=== PATIENT | female | born 2000 | race Caucasian/White ===

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

== ENCOUNTER 2020-03-11 01:55 | Emergency (ER) | payer OTHER ==
--- NOTE | 2020-03-11 03:04 | RADIOLOGY REPORT (SQ) ---
Left ankle x-ray three views on 03/11/2020 at 2:35 AM CLINICAL INDICATION: Twisting injury, lateral ankle pain COMPARISON: None FINDINGS: Mild soft tissue swelling is noted around the ankle. The ankle mortise is intact. There is a subtle acute minimally displaced vertical fracture through the posterior malleolus seen on the lateral view. No other definite fracture is noted. Visualized joints are well aligned. IMPRESSION: Subtle acute minimally displaced vertical fracture through the posterior malleolus.
--- NOTE | 2020-03-11 05:33 | ER Document Report ---
ED Extremity Problem, Lower - General Chief Complaint: Ankle Injury Stated Complaint: POSSIBLE INJURY TO LEFT FOOT Time Seen by Provider: 03/11/20 05:32 Primary Care Provider: [facility] [Provider [facility]] - Follow up as needed [facility] [Provider Group] - Follow up as needed Mode of Arrival: Wheelchair Information source: Patient Notes: 20-year-old female presents to ED for complaint of pain to the left ankle posterior and lateral aspect. She does have swelling to the lateral aspect as well as the posterior ankle. Patient states that lately if she sits on her feet when she gets up her feet are numb and she does not feel them and tonight around 9 PM she was sitting on her right foot it was numb so when she stood up it c aused her to roll causing her left ankle to roll injuring her ankle. She states that she fell about 9:00 but she did not come to the emergency room till 3 AM because she thought it was just sprained and she was can be okay but when the ankle continues to swell she decided to come to the emergency room to be examined. Constitutional: Negative for fever. HENT: Negative for sore throat. Eyes: Negative for visual changes. Cardiovascular: Negative for chest pain. Respiratory: Negative for shortness of breath. Gastrointestinal: Negative for abdominal pain, vomiting or diarrhea. Genitourinary: Negative for dysuria. Musculoskeletal: Left ankle pain and swelling Skin: Negative for rash. Neurological: Negative for headaches, weakness or numbness. 10 point ROS negative except as marked above and in HPI. PHYSICAL EXAMINATION: GENERAL: Well-appearing, no acute distress. HEAD: Atraumatic, normocephalic. EYES: Pupils equal round and reactive to light, extraocular movements intact, sclera anicteric, conjunctiva are normal. ENT: nares patent, no oral pharyngeal trauma. No hemotympanum, no Anaya's sign, no raccoon eyes. NECK: No midline cervical spine tenderness. Patient able to move their head to 45 bilaterally without any discomfort. LUNGS: Breath sounds clear to auscultation bilaterally and equal. No wheezes rales or rhonchi. HEART: Regular rate and rhythm without murmurs. CHEST WALL: No ecchymosis over the chest wall. ABDOMEN: Soft, nontender, normoactive bowel sounds. No guarding, no rebound. No seatbelt sign. EXTREMITIES: Normal range of motion, no pitting or edema. No long bone deformities. BACK: No midline spinal tenderness, step-offs, or deformities. NEUROLOGICAL: Face symmetric. Tongue protrudes midline. Extraocular motions intact. Pupils are 2 mm and equally reactive. Normal speech, normal gait. 5 out of 5 strength in both the distal and proximal upper and lower extremities bilaterally. Sensation is grossly intact throughout. Finger to nose testing normal. Pronator drift normal. PSYCH: Normal mood, normal affect. SKIN: Warm, Dry, normal turgor, no rashes or lesions noted. - HPI Patient complains to provider of: Injury, Pain, Swelling Location: Ankle Occurred: Yesterday Where: Home Onset/Duration: Gradual Quality of pain: Achy, Pressure Severity: Mild Pain Level: 1 Context: Twisted Recent injury: Yes Associated symptoms: Painful ambulation Exacerbated by: Hanging down, Movement, Walking Relieved by: Elevation, Ice, Rest - Related Data Allergies/Adverse Reactions: No Known Allergies Allergy (Verified 03/11/20 02:21) Past Medical History - General Information source: Patient - Social History Smoking Status: Never Smoker Frequency of alcohol use: Rare Drug Abuse: None Lives with: Family Family History: Reviewed & Not Pertinent Patient has suicidal ideation: No Patient has homicidal ideation: No - Past Medical History Cardiac Medical History: Reports: None Pulmonary Medical History: Reports: None EENT Medical History: Reports: None Neurological Medical History: Reports: None Endocrine Medical History: Reports: None Renal/ Medical History: Reports: Hx Kidney Stones Malignancy Medical History: Reports: None GI Medical History: Reports: None Musculoskeletal Medical History: Reports Hx Musculoskeletal Trauma Skin Medical History: Reports None Psychiatric Medical History: Reports: None Traumatic Medical History: Reports: Hx Fractures - Left posterior tibial malleolus Infectious Medical History: Reports: None Surgical Hx: Negative Past Surgical History: Reports: None - Immunizations Immunizations up to date: Yes Hx Diphtheria, Pertussis, Tetanus Vaccination: Yes Physical Exam - Vital signs Vitals: Temp Pulse Resp BP Pulse Ox 98.9 F 112 H 16 121/78 100 03/11/20 02:02 03/11/20 02:02 03/11/20 02:02 03/11/20 02:02 03/11/20 02:02 Course - Re-evaluation Re-evalutation: 03/11/20 06:20 Patient was treated with a posterior short leg splint at 90 degrees angle. She was also given instructions on nonweightbearing crutch walking for this fracture. Patient has oxycodone at home from previous kidney stone that she never took. She states she would prefer just using Tylenol or Motrin unless she has to take the narcotic. I did give her instructions on elevation ice ibuprofen and Tylenol. Patient was discharged home after giving her the name and phone number for her primary care through [facility] and [facility] for surgery. She was told to please call her primary care and/or [facility] to get a referral promptly as this is a fractured bone. She verbalized understanding and agreement with treatment plan and she was discharged home. - Vital Signs Vital signs: Temp Pulse Resp BP Pulse Ox 98.9 F 112 H 16 121/78 100 03/11/20 02:02 03/11/20 02:02 03/11/20 02:02 03/11/20 02:02 03/11/20 02:02 - Laboratory Results Critical Laboratory Results Reviewed: No Critical Results - Radiology Results Critical Radiology Results Reviewed: No Critical Results Procedures - Immobilization Left Ankle Time completed: 06:19 Pre-Proc Neuro Vasc Exam: Normal Immobilizer type: Crutches - Nonweightbearing, Short Leg Posterior Performed by: PCT Post-Proc Neuro Vasc Exam: Normal Alignment checked and good: Yes Discharge - Discharge Clinical Impression: Fracture of posterior malleolus of left tibia Qualifiers: Encounter type: initial encounter Fracture type: closed Qualified Code(s): S82.392A - Other fracture of lower end of left tibia, initial encounter for closed fracture Condition: Stable Disposition: HOME, SELF-CARE Additional Instructions: Fractured Ankle posterior malleolus of the left tibia You have a fracture of posterior aspect of the tibia or large bone in the lower leg at the ankle. This is mildly displaced but does not need to be set at this time. A splint will be applied and then you will follow-up with orthopedics for further care. This fracture wll require a cast for healing and some of the more serious fractures of this type will require surgery. If surger y is not required, the bones requires only protection and sufficient time for healing. The initial treatment is immobilization, elevation, and ice packs. Depending on the type of fracture, immobilization may consist of a splint or cast. The length of time required for healing depends on the type of fracture. You will be referred to an orthopedic surgeon who will re-assess you periodically to make certain that the bone heals without complications. It's important that you follow the instructions given you. Splint Pending Casting Your injury can't be casted until the swelling has subsided. Therefore, a temporary splint has been placed to protect the injury. Full use of an injured area is not possible in a splint. You should follow the doctor's instructions concerning rest, ice, and elevation of the injury. Never do anything which causes pain under the splint. Keep the splint on ALL THE TIME until you return for casting. If there is unexpected severe pain, or numbness, discoloration, or swelling beyond the splint, you should return at once. USE OF CRUTCHES: The doctor has recommended that you not bear weight at this time. You will need to use crutches. Adjust the crutches so the tops come to about two inches under the armpit while you are standing upright. Use your hands -- not your armpits -- to support your weight. To get into a chair, support yourself with one crutch on the injured side. Hold the chair with the other hand, then lower yourself while putting all your weight on the good leg. Going up stairs is `good leg up, step up, then bring up crutches and bad leg.' Down stairs is `bad leg and crutches down, then bring good leg down.' If you develop numbness or swelling in an arm or hand, you are using the crutches incorrectly. Return if you are having any problems with the crutches. ICE & ELEVATION: Apply ice packs frequently against the painful area. Many different schedules are recommended, such as "20 minutes on, 20 minutes off" or "one hour ice, two hours rest." If you need to work, you may need to go longer between ice treatments. You should plan to have the area ice packed AT LEAST one-fourth of the time. The ice should be applied over the wrap, tape, or splint, or over a layer of cloth -- not directly against the skin. Some ice bags have a built-in cloth and can be put directly on the skin. Your injured part should be elevated as much as possible over the next 48 hours. Try to keep the injury above the level of the heart. Avoid use of the injured area. Elevation and rest will decrease the swelling. USE OF [id number] IBUPROFEN: Ibuprofen (Advil, Nuprin, Medipren, Motrin IB) is a medication for fever and pain control. In addition, it has anti- inflammatory effects which may be beneficial, especially in the treatment of injuries. It's best to take ibuprofen with food. Persons with ulcer disease or allergy to aspirin should notify their physician of this before taking ibuprofen. Ibuprofen can be given every four to six hours, for a total of four doses daily. Age Pain or fever dose Antiinflammatory dose 6-8 yr 200 mg (1 tab) 200 mg (1 tab) 9-11 yr 200 mg (1 tab) 200-400 mg (1-2 tab) 11-14 yr 200-400 mg (1-2 tab) 400 mg (2 tab) 15-adult 400 mg (2 tab) 600 mg (3 tab) You state you have oxycodone at home left over from when you had a kidney stone. You can use this 1 tablet every 6 hours if you need that for the pain. Try to use Tylenol or Motrin is much as possible and only use narcotics when you need them. You have pain that is not relieved by the Tylenol or Motrin take your pain medicine so that you are able to walk and take care of yourself. Remember that you cannot put your foot down on the floor but you need to use your crutches no weightbearing on the foot. FOLLOW-UP CARE: If you have been referred to a physician for follow-up care, call the physicians office for an appointment as you were instructed or within the next two days. If you experience worsening or a significant change in your symptoms, notify the physician immediately or return to the Emergency Department at any time for re-evaluation. Referrals: [facility] [Provider Group] - Follow up as needed [facility] [Provider Group] - Follow up as needed
[2020-03-11] MEDS ORDERED: ACETAMINOPHEN 325 MG TABLET PO ONE (05:47)
[2020-03-11 06:23] VITALS: BP 117/67
== END 2020-03-11 06:21 | disposition home or self-care (01) ==
LOC: ER 01:55
DX: S82.892A Other fracture of left lower leg, initial encounter for closed fracture (principal); M25.572 Pain in left ankle and joints of left foot; W19.XXXA Unspecified fall, initial encounter; Y92.009 Unspecified place in unspecified non-institutional (private) residence as the place of occurrence of the external cause
CPT/HCPCS: 99283